=== PATIENT | female | born 1945 | race Caucasian/White ===

== ENCOUNTER → 2018-07-06 | Outpatient (CLI) | payer BC ==
[~2018-07-06] MED LIST: COLE625 PO; LEVSOD88 PO; METO100ER PO; Quinapril HCl40 MG PO; SPIR25 PO
== END | disposition home or self-care (01) ==
LOC: LAB EV 09:09 → LAB SHORT 09:09
DX: L73.9 Follicular disorder, unspecified (principal)
CPT/HCPCS: 87070; 87205

== ENCOUNTER 2018-12-04 12:40 | Day surgery (SDC) | payer BC ==
[~2018-12-04] VITALS: Ht 172.7 cm; Wt 73.8 kg
[~2018-12-04 12:40] MED LIST changes: +ALLEGRA ALLERG180 M1 PO; +ALPR.25 PO; +Advil200 M1 PO; +Aldactone100 MG PO; +Alph-E-Mixed400 UNIT; +Anti-Diarrheal2 MG PO; +Aspirin EC81 MG; +CRANBERRY PLUS1 EACH PO; +Calcium +D & M1 EACH PO; +FISH OIL 1,2001 EAC1 PO; +Fluocinonide-E15 GM TP; +Norco 5-325 Ta1 EACH PO; +Pepto-Bismol262 MG PO; +VITAMIN C500 MG PO; +VITAMIN D35000 UNIT PO
== END 2018-12-04 15:05 | disposition home or self-care (01) ==
LOC: ORSCSDS 12:40
PROVIDERS: Internal Medicine Gastroenterology
PROC: 0DBL8ZX Excision of Transverse Colon, Via Natural or Artificial Opening Endoscopic, Diagnostic (ICD-10-PCS; principal; 2018-12-04 14:00)
DX: R19.4 Change in bowel habit (principal); D12.3 Benign neoplasm of transverse colon; K57.30 Diverticulosis of large intestine without perforation or abscess without bleeding; I10 Essential (primary) hypertension; E03.9 Hypothyroidism, unspecified; E78.5 Hyperlipidemia, unspecified; K21.9 Gastro-esophageal reflux disease without esophagitis; F41.9 Anxiety disorder, unspecified; Z87.891 Personal history of nicotine dependence; Z79.899 Other long term (current) drug therapy
CPT/HCPCS: 88305; J2704; J7120

== ENCOUNTER → 2019-02-23 | Outpatient (CLI) | payer BC | END | disposition home or self-care (01) | LOC: LAB 10:22 → LAB SHORT 10:22 | DX: N39.0 Urinary tract infection, site not specified (principal) | CPT/HCPCS: 87077; 87086; 87186 ==

== ENCOUNTER → 2019-04-26 | Outpatient (CLI) | payer BC | END | disposition home or self-care (01) | LOC: LAB SHORT 17:47 → LAB 17:47 | DX: N39.0 Urinary tract infection, site not specified (principal) | CPT/HCPCS: 87077; 87086; 87186 ==

== ENCOUNTER → 2019-08-24 | Outpatient (CLI) | payer BC | LOC: LAB 13:02 → LAB SHORT 13:02 | DX: R35.0 Frequency of micturition (principal) | CPT/HCPCS: 87077; 87086; 87186 ==

== ENCOUNTER → 2021-01-26 | Outpatient (CLI) | payer BC | END | disposition home or self-care (01) | LOC: LAB 08:06 → LAB SHORT 08:06 | DX: R51.9 Headache, unspecified (principal) | CPT/HCPCS: 85651 ==

== ENCOUNTER → 2021-12-28 | Outpatient (CLI) | payer BC | END | disposition home or self-care (01) | LOC: LAB 13:12 → LAB SHORT 13:12 | DX: L08.9 Local infection of the skin and subcutaneous tissue, unspecified (principal); L02.212 Cutaneous abscess of back [any part, except buttock and flank]; L53.8 Other specified erythematous conditions; R20.8 Other disturbances of skin sensation; Z85.828 Personal history of other malignant neoplasm of skin | CPT/HCPCS: 87070; 87205 ==

== ENCOUNTER 2022-08-14 07:19 | Day surgery (SDC) | payer BC ==
[~2022-08-14] VITALS: Ht 170.2 cm; Wt 76.5 kg
[~2022-08-14 07:19] MED LIST changes: +COLESEVELAM HC625 MG PO; +LISI20 PO
--- NOTE | 2022-08-14 07:52 | NUR ---
08/14/22 0752 Kaye Mayen TETRAANAMINE IN AT 0741 PLEGETT IN AT 0714
== END 2022-08-14 09:19 | disposition home or self-care (01) ==
LOC: ORSCSDS 07:19
PROVIDERS: Ophthalmology
PROC: 08DK3ZZ Extraction of Left Lens, Percutaneous Approach (ICD-10-PCS; principal; 2022-08-14 08:30)
DX: H25.12 Age-related nuclear cataract, left eye (principal); Z96.1 Presence of intraocular lens; I10 Essential (primary) hypertension; E03.9 Hypothyroidism, unspecified; I12.9 Hypertensive chronic kidney disease with stage 1 through stage 4 chronic kidney disease, or unspecified chronic kidney disease; N18.9 Chronic kidney disease, unspecified; F41.9 Anxiety disorder, unspecified; Z79.899 Other long term (current) drug therapy
CPT/HCPCS: J2001; J2250; J3010; J3301; J7040; V2632

== ENCOUNTER → 2023-11-21 | Outpatient (CLI) | payer BC ==
[2023-11-22 20:20] LABS: Adenovirus F 40/41 Not Detected (NOT DETECT); Astrovirus Not Detected (NOT DETECT); Campylobacter Sp Not Detected (NOT DETECT); Cryptosporidium Not Detected (NOT DETECT); Cyclospora Cayetanensis Not Detected (NOT DETECT); E. Coli O157 Not Detected (NOT DETECT); Entamoeba Histolytica Not Detected (NOT DETECT); Enteroaggregative E. coli-EAEC Not Detected (NOT DETECT); Enteropathogenic E. coli-EPEC Detected (NOT DETECT); Enterotoxigenic E. coli-ETEC Not Detected (NOT DETECT); Giardia Lamblia Not Detected (NOT DETECT); Norovirus GI/GII Not Detected (NOT DETECT); Plesiomonas Shigelloides Not Detected (NOT DETECT); Rotavirus A Not Detected (NOT DETECT); Salmonella Sp Not Detected (NOT DETECT); Sapovirus Not Detected (NOT DETECT); Shiga Toxin-prod E. coli-STEC Not Detected (NOT DETECT); Shigella/Enteroin E. coli-EIEC Not Detected (NOT DETECT); Vibrio Cholerae Not Detected (NOT DETECT); Vibrio Sp Not Detected (NOT DETECT); Yersinia Enterocolitica Not Detected (NOT DETECT)
== END ==
LOC: LAB 21:30 → LAB SHORT 21:30
PROVIDERS: Physician Assistant Surgical
DX: R19.7 Diarrhea, unspecified (principal)
CPT/HCPCS: 87507

== ENCOUNTER → 2024-04-07 | Outpatient (CLI) | payer BC ==
[2024-04-08 12:34] LABS: Bacterial Vaginosis PCR Negative (NEGATIVE); Candida Group, PCR NOT DETECTED (NOT DETECT); Candida glabrata-krusei, PCR NOT DETECTED (NOT DETECT)
== END | disposition home or self-care (01) ==
LOC: LAB SHORT 15:33 → LAB 15:33
PROVIDERS: Physician Assistant
DX: N89.8 Other specified noninflammatory disorders of vagina (principal)
CPT/HCPCS: 87481; 87661; 87801

== ENCOUNTER → 2024-09-03 | Outpatient (CLI) | payer BC ==
[~2024-09-03] MED LIST changes: +Acetaminophen325 M1 PO
== END ==
LOC: LAB 13:29 → LAB SHORT 13:29
DX: L98.9 Disorder of the skin and subcutaneous tissue, unspecified (principal)
CPT/HCPCS: 88305; 88312

== ENCOUNTER 2024-09-08 07:49 | Day surgery (SDC) | payer BC ==
[~2024-09-08] VITALS: Ht 167.6 cm; Wt 78.7 kg
[2024-09-08] VITALS (13 sets, daily range): BP systolic 84–165; BP diastolic 46–75
[~2024-09-08 07:49] MED LIST changes: -Acetaminophen325 M1 PO; +Lactated Ringer's 1,000 ML IV SCH
[2024-09-08] MEDS ORDERED: Acetaminophen325 M1 PO (08:32)
--- NOTE | 2024-09-08 08:45 | NUR ---
History, Chart, Medications and Allergies reviewed before start of procedure. Patient confirms NPO status and agrees with scheduled surgery. Reports taking all colon prep with clear results. Ride arranged home with friend, Jaja.
[2024-09-08] MEDS ORDERED: propofoL 20 ML IV ONE (08:57)
--- NOTE | 2024-09-08 09:26 | NUR ---
09/08/24 0960 Yaniv Santa CONFIRMED AND REVIEWED H&P, MEDCICATIONS, ALLERGIES, MEDICAL HISTORY, RESPIRATORY HISTORY, VITAL SIGNS, 3-LEAD EKG, CONSENTS, AND PHYSICIAN ORDERS. PATIENT CONFIRMS NPO STATUS AND AGREES WITH SCHEDULED PROCEDURE. MONITOR INTACT WITH CONTINUOUS PULSE OXIMETRY, CAPNOGRAPHY, 3-LEAD EKG, INTERMITTENT BP. SUPPLEMENTAL O2 TO BE TITRATED THROUGHOUT PROCEDURE TO MAINTAIN O2 SATURATION ABOVE 90%. PATIENT DETERMINED TO BE ASA APPROPRIATE FOR PROPOFOL SEDATION PRIOR TO START OF PROCEDURE BY DR. SHAW.
--- NOTE | 2024-09-08 10:11 | NUR ---
Discharge instructions reviewed with patient. Patient verbalizes understanding. Copy given to patient to take home. Patient States Post-Procedure ride home has been arranged. Discharged via wheelchair to private car for ride home.
== END 2024-09-08 10:12 | disposition home or self-care (01) ==
LOC: ORSCMMR 07:49 → ORD 09:00 → ORSCMMR 10:12
PROVIDERS: Internal Medicine Gastroenterology
PROC: 0DBM8ZX Excision of Descending Colon, Via Natural or Artificial Opening Endoscopic, Diagnostic (ICD-10-PCS; principal; 2024-09-08 09:00)
PROC: 0DBN8ZX Excision of Sigmoid Colon, Via Natural or Artificial Opening Endoscopic, Diagnostic (ICD-10-PCS; principal; 2024-09-08 09:00)
DX: Z12.11 Encounter for screening for malignant neoplasm of colon (principal); Z86.0101 Personal history of adenomatous and serrated colon polyps; K63.5 Polyp of colon; D12.4 Benign neoplasm of descending colon; K57.30 Diverticulosis of large intestine without perforation or abscess without bleeding; I10 Essential (primary) hypertension; E78.00 Pure hypercholesterolemia, unspecified; E03.9 Hypothyroidism, unspecified; Z79.899 Other long term (current) drug therapy
CPT/HCPCS: 88305; J2704; J7120